=== PATIENT | female | born 1985 | race Caucasian/White ===

== ENCOUNTER 2017-02-12 15:24 | Emergency (ER) | payer MEDICAID ==
[2017-02-12 15:36] VITALS: BMI 29.9
[2017-02-12 15:38] VITALS: BP 136/77; PULSE 80; TEMP 99
--- NOTE | 2017-02-12 15:50 | ED PDOC ---
Arrival/HPI - General Chief Complaint: Abnormal Skin Integrity Time Seen by Provider: 02/12/17 15:30 Historian: Patient - History of Present Illness Narrative History of Present Illness (Text): 02/12/17 15:39 31 y/o female, no significant pmh, nkda, c/o itching rash x 3 days. Pt. stated that she has itching rash form the neck to the lower extremities. Itching rash , no pain, no change in soap/clothing/detergent, no fever or bodyache, no upper respiratory infection, here for the evaluation but will be driving home, no chest pain or shortness of breath, no night sweat, no other medical or psychological complaints. Past Medical History - Provider Review Nursing Documentation Reviewed: Yes - Infectious Disease Hx of Infectious Diseases: None - Psychiatric Hx Substance Use: No - Surgical History Other/Comment: IUD placement - Anesthesia Hx Anesthesia: No Family/Social History - Physician Review Nursing Documentation Reviewed: Yes Family/Social History: Unknown Family HX Smoking Status: Never Smoked Hx Alcohol Use: Yes Frequency of alcohol use: Socially Hx Substance Use: No Allergies/Home Meds Allergies/Adverse Reactions: Allergies No Known Allergies Allergy (Verified 02/12/17 15:36) Review of Systems - Review of Systems Constitutional: absent: Fatigue, Fevers Eyes: absent: Vision Changes ENT: absent: Hearing Changes Respiratory: absent: SOB, Cough Cardiovascular: absent: Chest Pain Gastrointestinal: absent: Abdominal Pain, Nausea, Vomiting Skin: Rash, Pruritis, Skin Lesions. absent: Laceration, Abscess, Ulcer, Cellulitis Neurological: absent: Headache Physical Exam Vital Signs Reviewed: Yes Vital Signs Temp Pulse Resp BP Pulse Ox 02/12/17 15:38 99.0 F 80 18 136/77 97 Temperature: Afebrile Blood Pressure: Normal Pulse: Regular Respiratory Rate: Normal Appearance: Positive for: Well-Appearing, Non-Toxic, Comfortable Pain Distress: None Mental Status: Positive for: Alert and Oriented X 3 - Systems Exam Head: Present: Atraumatic, Normocephalic Pupils: Present: PERRL Extroacular Muscles: Present: EOMI Conjunctiva: Present: Normal Mouth: Present: Moist Mucous Membranes Neck: Present: Normal Range of Motion Respiratory/Chest: Present: Clear to Auscultation, Good Air Exchange. No: Respiratory Distress, Accessory Muscle Use Cardiovascular: Present: Regular Rate and Rhythm, Normal S1, S2. No: Murmurs Abdomen: Present: Normal Bowel Sounds. No: Tenderness, Distention, Peritoneal Signs Back: Present: Normal Inspection Upper Extremity: Present: Normal Inspection. No: Cyanosis, Edema Lower Extremity: Present: Normal Inspection. No: Edema Neurological: Present: GCS=15, Speech Normal, Motor Func Grossly Intact, Gait Normal, Memory Normal Skin: Present: Warm, Dry, Rashes (Bilateral upper and lower extremities/chest/ back, sparing the face: scattered papule rash approx. 0.5cm noted with no visible central insect bite chan, no cellulitis or streaking, no ulcers, no bullseye or target signs. ), Normal Color Psychiatric: Present: Alert, Oriented x 3, Normal Insight, Normal Concentration Medical Decision Making ED Course and Treatment: 02/12/17 15:51 -I explained to the patient base on the presentation and history, this is likely dermatitis which I will put her on a course of prednisone with antihistamines. -Discharge home with benadryl, pepcid, prednisone, keep the skin cool and dry, avoid wearing tight clothing and avoid taking hot shower, follow up with your own pmd and nurse private duty within 2 days, return to the ER for any new or worsening signs or symptoms. - PA / FORMS BUILDER / Resident Statement MD/DO has reviewed & agrees with the documentation as recorded. Disposition/Present on Arrival - Present on Arrival Any Indicators Present on Arrival: No History of DVT/PE: No History of Uncontrolled Diabetes: No Urinary Catheter: No History of Decub. Ulcer: No History Surgical Site Infection Following: None - Disposition Have Diagnosis and Disposition been Completed?: Yes Diagnosis: Dermatitis Disposition: HOME/ ROUTINE Disposition Time: 15:53 Patient Plan: Discharge Condition: GOOD Additional Instructions: -Discharge home with benadryl (this will cause drowsiness and sleepiness so please don't drive or take it during work), pepcid, prednisone, keep the skin cool and dry, avoid wearing tight clothing and avoid taking hot shower, follow up with your own pmd and nurse private duty within 2 days, return to the ER for any new or worsening signs or symptoms. Prescriptions: DiphenhydrAMINE [Benadryl] 50 mg PO QID PRN #20 cap PRN Reason: Other Famotidine [Pepcid] 20 mg PO BID #14 tab predniSONE [Prednisone] 2 tab PO DAILY #10 tab Referrals: Aaron Parra MD [Staff Provider] - Follow up with primary Forms: [employer] ([place]rainian), WORK NOTE
[2017-02-12 16:17] VITALS: RESP 17; O2SAT 98
== END 2017-02-12 16:17 | disposition home or self-care (01) ==
LOC: ED 15:24
DX: L30.9 Dermatitis, unspecified (principal)